=== PATIENT | male | born 1960 | race Caucasian/White ===

== ENCOUNTER → 2020-05-27 | Outpatient (CLI) | payer BC | LOC: HEART 5 09:00 | DX: I20.8 Other forms of angina pectoris (principal); R06.02 Shortness of breath; I51.7 Cardiomegaly | CPT/HCPCS: 78452; 93306; A9502; J2785 ==

== ENCOUNTER → 2020-10-09 | Outpatient (CLI) | payer BC | LOC: US 09:53 | DX: R74.01 Elevation of levels of liver transaminase levels (principal); K76.0 Fatty (change of) liver, not elsewhere classified | CPT/HCPCS: 76700 ==

== ENCOUNTER → 2021-04-16 | Outpatient (CLI) | payer BC | LOC: US 13:06 | DX: R09.89 Other specified symptoms and signs involving the circulatory and respiratory systems (principal) | CPT/HCPCS: 93880 ==

== ENCOUNTER 2021-06-02 15:43 | Emergency (ER) | payer BC ==
[2021-06-02 16:48] LABS: HEMOGLOBIN 16.2 gm/dl (14.0-17.5); RED BLOOD COUNT 5.45 M/UL (4.20-5.50); WHITE BLOOD COUNT 6.6 K/UL (4.5-11.0)
[2021-06-02 17:11] LABS: BUN/CREATININE RATIO 13 (0-10)
== END 2021-06-02 21:11 | disposition home or self-care (01) ==
LOC: ER1 15:43
PROVIDERS: Emergency Medicine
DX: R09.02 Hypoxemia (principal); E78.5 Hyperlipidemia, unspecified; E11.9 Type 2 diabetes mellitus without complications; I10 Essential (primary) hypertension
CPT/HCPCS: 80048; 82550; 82553; 83880; 84484; 85025; 93005; 99284; Q9967

== ENCOUNTER → 2021-06-02 | Outpatient (CLI) | payer BC | LOC: HEART 5 13:47 | DX: R06.02 Shortness of breath (principal) | CPT/HCPCS: 94060; 94729 ==

== ENCOUNTER → 2021-10-28 | Outpatient (CLI) | payer BC | LOC: KOH-I 09:29 | DX: K76.0 Fatty (change of) liver, not elsewhere classified (principal) | CPT/HCPCS: 76700 ==